=== PATIENT | male | born 1985 | race Two or more races ===

== ENCOUNTER 2025-01-04 03:51 | Emergency (ER) | payer MEDICAID, SELFPAY ==
[2025-01-04 03:55] VITALS: BMI 27.1
[2025-01-04 04:05] VITALS: BP 149/93; PULSE 74; RESP 18; TEMP 36.6; O2SAT 98
--- NOTE | 2025-01-04 04:09 | PD.EDRME ---
Rapid Medical Screening Exam RME Arrival date/time: 01/04/25 03:51 39 yo m present to ED for c/o of intermittent hives for 1 week I have greeted and performed a focused initial assessment of this patient. A comprehensive ED assessment and evaluation of the patient, analysis of all test results, and completion of the medical decision making process will be conducted by additional ED providers. Chief Complaint: Skin/Abscess/Foreign Body Vital signs: Vital Signs Temperature 98 F 01/04/25 04:05 Pulse Rate 74 01/04/25 04:05 Respiratory Rate 18 01/04/25 04:05 Blood Pressure 149/93 H 01/04/25 04:05 Pulse Oximetry (%) 98 01/04/25 04:05 Oxygen Delivery Method Room Air 01/04/25 04:05
[2025-01-04] MEDS: predniSONE 20 MG TABLET 60 MG PO (04:36)
[2025-01-04] MEDS: FAMOTIDINE 20 MG TABLET 40 MG PO (04:36)
--- NOTE | 2025-01-04 07:34 | PD.EDSKIN ---
ED Skin Abcess FB-RME/HPI General Chief complaint: Skin/Abscess/Foreign Body Stated complaint: rash Time Seen by Provider: 01/04/25 07:31 Arrival date/time: 01/04/25 03:51 This is a 39-year-old male with complaints of rash throughout body that started about a week ago. Patient states it is very itchy. Patient denies any shortness of breath or trouble breathing. Patient denies any tongue swelling. Patient denies any to any new drug exposures or any new products that he uses at home. Patient does have a history of diabetes. RME / HPI RME / HPI narrative: 01/04/25 03:51 39 yo m present to ED for c/o of intermittent hives for 1 week I have greeted and performed a focused initial assessment of this patient. A comprehensive ED assessment and evaluation of the patient, analysis of all test results, and completion of the medical decision making process will be conducted by additional ED providers. Related Data Previous Rx's ?Medication ?Instructions ?Recorded diphenhydramine HCl 25 mg tablet 50 mg (2 x 25 mg) PO Q6H PRN 01/04/25 allergic reaction #30 tabs famotidine 20 mg tablet 20 mg PO BID 7 days #14 tabs 01/04/25 prednisone 20 mg tablet 20 mg PO QDAY #5 tabs 01/04/25 Allergies Allergy/AdvReac Type Severity Reaction Status Date / Time No Known Allergies Allergy Verified 01/04/25 03:59 Review of Systems Review of Systems Systems Reviewed: All systems reviewed, normal except as documented Course Orders Category Date Time Status Famotidine [Pepcid] Med 01/04/25 04:10 Discontinued 40 mg PO X1 ONE predniSONE Med 01/04/25 04:10 Discontinued 60 mg PO X1 ONE Vital Signs Vital signs: Vital Signs Temperature 98 F 01/04/25 04:05 Pulse Rate 74 01/04/25 04:05 Respiratory Rate 18 01/04/25 04:05 Blood Pressure 149/93 H 01/04/25 04:05 Pulse Oximetry (%) 98 01/04/25 04:05 Oxygen Delivery Method Room Air 01/04/25 04:05 Skin / Abscess / Foreign Body Medications / Prescriptions Medication administrations:: Medication Administration History Discontinued Medications Famotidine (Famotidine 20 Mg Tablet) 40 mg PO X1 ONE Stop: 01/04/25 04:11 Last Admin: 01/04/25 04:36 Dose: 40 mg Documented By: ROSITA Prednisone (Prednisone 20 Mg Tablet) 60 mg PO X1 ONE Stop: 01/04/25 04:11 Last Admin: 01/04/25 04:36 Dose: 60 mg Documented By: ROSITA Discharge Plan Plan Patient Disposition: HOME (Self Care) Patient condition on transfer: Stable Prescriptions/Referrals Prescriptions/Med Rec: New famotidine 20 mg tablet 20 mg PO BID 7 Days Qty: 14 0RF diphenhydramine HCl 25 mg tablet 50 mg PO Q6H PRN (Reason: allergic reaction) Qty: 30 0RF prednisone 20 mg tablet 20 mg PO QDAY Qty: 5 0RF Referrals: Pepe Chopra MD [Primary Care Provider] - In 1 week Problem List Clinical Impression: Allergic reaction Patient/Caregiver Discharge Instructions Discharge Activity: activity as tolerated Education Materials: ED Medicine Reaction: Allergic Additional Instructions: Follow up with primary provider in 1-2 days. Come back to ED if symptoms change or worsen. If symptoms do not improve make an appointment for further workup for rash. Angelica un emeka con broderick medico de cabecera en las proximas 24-48 horas. Regrese a la gerhard de emergencias si hay evidencia de que los signos o sintomas empeoran. Print Language: Urdu Stand Alone Forms: Lauryn Award Info., Patient Portal Info Letter PA/TEST CELL TECHNICIAN Supervising Physician PA/JEB Supervising Physician: tolu
[2025-01-04] MEDS: DiphenhydrAMINE 25 MG CAPSULE 50 MG PO (07:44)
[2025-01-04 07:48] VITALS: BP 147/91; PULSE 65; RESP 18; TEMP 36.9; O2SAT 96
== END 2025-01-04 07:51 | disposition home or self-care (01) ==
PROVIDERS: Emergency Provider Emergency Medicine; PCP Family Medicine
DX: T78.40XA Allergy, unspecified, initial encounter (principal); E11.9 Type 2 diabetes mellitus without complications; X58.XXXA Exposure to other specified factors, initial encounter
CPT/HCPCS: 99282; J7512; A9270